=== PATIENT | female | born 1990 | race Two or more races ===

== ENCOUNTER 2016-09-23 20:37 | Emergency (ER) | payer SELFPAY ==
[~2016-09-23] VITALS: Ht 160 cm; Wt 90.7 kg
[~2016-09-23 20:37] MED LIST: ANTIDEPRESSANT
[2016-09-23 20:39] VITALS: BP 120/71
== END 2016-09-23 21:00 | disposition home or self-care (01) ==
LOC: ER 20:48
DX: A08.4 Viral intestinal infection, unspecified (principal); F32.9 Major depressive disorder, single episode, unspecified
CPT/HCPCS: A4606; Z7610

== ENCOUNTER 2017-07-22 20:59 | Emergency (ER) | payer MEDICAID, OTHER ==
[~2017-07-22] VITALS: Ht 157.5 cm; Wt 77.1 kg
[2017-07-22 21:02] VITALS: BP 126/70
[2017-07-22 22:15] LABS: APPEARANCE,URINE CLEAR (CLEAR); BILIRUBIN,URINE NEGATIVE (NEGATIVE); BLOOD, URINE NEGATIVE Ery/uL (NEGATIVE); COLOR,URINE YELLOW (YELLOW); KETONES,URINE NEGATIVE (NEGATIVE); LEUKOCYTE ESTERASE ,URINE NEGATIVE (NEGATIVE); NITRITE, URINE NEGATIVE (NEGATIVE); PROTEIN,URINE NEGATIVE (NEGATIVE); UGLUCOSE NEGATIVE (NEGATIVE); UROBILINOGEN,URINE 0.2 EU/dL (0.2)
--- NOTE | 2017-07-22 22:19 | NUR ---
pt medicated as ordered.
[2017-07-22 22:22] LABS: BASOPHILS % (AUTO) 0.3 % (0.0-2.0); EOSINOPHILS # (AUTO) 0.2 /CMM (0.0-0.7); EOSINOPHILS % (AUTO) 1.8 % (0.0-6.0); HEMATOCRIT 30 % (33-45); HEMOGLOBIN 10.1 g/dL (11.5-14.8); LYMPHOCYTES # (AUTO) 2.3 /CMM (0.8-4.8); LYMPHOCYTES % (AUTO) 20.8 % (20.0-44.0); MEAN CORPUSCULAR HEMOGLOBIN 27 PG (26.0-33.0); MEAN CORPUSCULAR HGB CONC 34 g/dl (31.0-36.0); MEAN CORPUSCULAR VOLUME 82 fL (82-100); MONOCYTES # (AUTO) 0.6 /CMM (0.1-1.30); MONOCYTES % (AUTO) 5.4 % (2.0-12.0); NEUTROPHILS % (AUTO) 71.7 % (43.0-81.0); PLATELET COUNT (AUTO) 273 /CMM (150-450); RDW COEFFICIENT OF VARIATION 15.4 (11.5-15.0); RED BLOOD CELL COUNT(AUTO) 3.69 MIL/uL (4.0-5.2); WHITE BLOOD COUNT (AUTO) 11.2 K/uL (4.3-11.0)
[2017-07-22] MEDS ORDERED: IV NS 0.9% 1,000 ML BAG IV ONE (22:30)
[2017-07-22 22:33] LABS: CALCIUM, SERUM 8.7 mg/dL (8.5-10.1); CREATININE 0.7 mg/dL (0.6-1.3); POTASSIUM 3.3 mmol/L (3.5-5.1)
[2017-07-22 22:40] LABS: ALBUMIN 2.9 g/dL (3.4-5.0); BILIRUBIN,TOTAL 0.2 mg/dL (0.2-1.0); TOTAL PROTEIN, SERUM 6.6 g/dL (6.4-8.2)
--- NOTE | 2017-07-22 23:36 | NUR ---
IV removed. Catheter intact and site benign. Pressure and 4x4 applied to site. No bleeding noted. Patient discharged to home in stable condition. Written and verbal after care instructions given. Patient verbalizes understanding of instruction. ambulatory with a steady gait
== END 2017-07-22 23:37 | disposition home or self-care (01) ==
LOC: ER 21:00
DX: R19.7 Diarrhea, unspecified (principal)
CPT/HCPCS: 36415; 80053; 81001; 84703; 85025; 96360; 99284; A4606; J7030; Z7610; 81000-TC

== ENCOUNTER 2017-12-06 20:45 | Emergency (ER) | payer OTHER ==
[~2017-12-06] VITALS: Ht 157.5 cm; Wt 63.5 kg
--- NOTE | 2017-12-06 20:59 | NUR ---
BB SELF; FEVER, CHILLS, COUGH, CONGESTION X 2 DAYS. NO SOB OR PAIN. VSS NAD. A/OX4 ABLE TO MAKE NEEDS KNOWN. WILL CONTINUE TO MONITOR FOR ANY CHANGES DURING THE SHFT.
[2017-12-06 21:06] VITALS: BP 151/97
== END 2017-12-06 21:06 | disposition home or self-care (01) ==
LOC: ER 20:45
DX: J20.9 Acute bronchitis, unspecified (principal); H92.02 Otalgia, left ear; Z98.890 Other specified postprocedural states
CPT/HCPCS: A4606; Z7610

== ENCOUNTER 2018-05-27 15:54 | Emergency (ER) | payer OTHER ==
[~2018-05-27] VITALS: Ht 157.5 cm; Wt 72.6 kg
[2018-05-27 16:08] VITALS: BP 138/77
== END 2018-05-27 16:48 | disposition home or self-care (01) ==
LOC: ER 16:05
DX: J06.9 Acute upper respiratory infection, unspecified (principal); J00 Acute nasopharyngitis [common cold]; H69.93 Unspecified Eustachian tube disorder, bilateral; Z98.890 Other specified postprocedural states
CPT/HCPCS: 99283; A4606; Z7610

== ENCOUNTER 2018-05-29 19:07 | Emergency (ER) | payer OTHER ==
[~2018-05-29] VITALS: Ht 160 cm; Wt 88.5 kg
[2018-05-29 19:22] VITALS: BP 129/64
== END 2018-05-29 19:43 | disposition home or self-care (01) ==
LOC: ER 19:08
DX: H72.92 Unspecified perforation of tympanic membrane, left ear (principal); Z98.890 Other specified postprocedural states
CPT/HCPCS: 99283; A4606; Z7610

== ENCOUNTER 2018-09-07 15:11 | Emergency (ER) | payer OTHER ==
[~2018-09-07] VITALS: Ht 157.5 cm; Wt 99.8 kg
[2018-09-07 15:26] VITALS: BP 121/84
[2018-09-07] MEDS ORDERED: FLUORESCEIN SODIUM OPHTH 1 EA STRIP ONE (15:39)
[2018-09-07] MEDS ORDERED: TETRACAINE HCL/PF 0.5% UD 2 ML BOTTLE ONE (15:39)
[2018-09-07] MEDS ORDERED: FLUORESCEIN SODIUM OPHTH 1 EA STRIP OP ONE (16:00)
[2018-09-07] MEDS ORDERED: TETRACAINE HCL/PF 0.5% UD 2 ML BOTTLE LEFTEYE ONE (16:00)
== END 2018-09-07 15:54 | disposition home or self-care (01) ==
LOC: ER 15:14
DX: B30.9 Viral conjunctivitis, unspecified (principal); Z98.890 Other specified postprocedural states
CPT/HCPCS: 99283; A4606; Z7610

== ENCOUNTER 2019-01-30 14:22 | Emergency (ER) | payer OTHER ==
[~2019-01-30] VITALS: Ht 167.6 cm; Wt 95.3 kg
[2019-01-30] MEDS ORDERED: ACETAMINOPHEN 325 MG TABLET ONE (15:13)
[2019-01-30] MEDS ORDERED: IBUPROFEN 600 MG TABLET PO ONE ×2 (15:13→15:30)
[2019-01-30] MEDS ORDERED: PSEUDOEPHEDRINE HCL 30 MG TABLET ONE (15:14)
--- NOTE | 2019-01-30 15:20 | NUR ---
Patient discharged to home in stable condition. Written and verbal after care instructions given. Patient verbalizes understanding of instruction. PT AMBULATED OUT WITH A STEADY GAIT. VSS. NAD NOTED.
[2019-01-30 15:22] VITALS: BP 117/76
[2019-01-30] MEDS ORDERED: PSEUDOEPHEDRINE HCL 30 MG TABLET PO ONE (15:30)
[2019-01-30] MEDS ORDERED: ACETAMINOPHEN 325 MG TABLET PO ONE (15:30)
== END 2019-01-30 15:23 | disposition home or self-care (01) ==
LOC: ER 14:22
DX: J06.9 Acute upper respiratory infection, unspecified (principal); Z98.890 Other specified postprocedural states

== ENCOUNTER 2019-09-19 16:25 | Emergency (ER) | payer OTHER ==
[~2019-09-19] VITALS: Ht 160 cm; Wt 98.4 kg
--- NOTE | 2019-09-19 17:08 | NUR ---
PT AAOX4. AMBULATORY C/O cough, congestion, chills for the past two days. upon assessment RR even and unlabored. vss. PA at bedside for eval.
[2019-09-19] MEDS ORDERED: ACETAMINOPHEN ES 500 MG TABLET ONE (17:18)
[2019-09-19] MEDS ORDERED: ACETAMINOPHEN 325 MG TABLET PO ONE (17:30)
--- NOTE | 2019-09-19 18:36 | NUR ---
Katherine ventura in [facility] - 09/19/19 at 1837 by JOAQUIN PT REFUSED FOR US TO WOUND CARE.
[2019-09-19 18:57] VITALS: BP 127/84
== END 2019-09-19 18:50 | disposition home or self-care (01) ==
LOC: ER 16:30
DX: J06.9 Acute upper respiratory infection, unspecified (principal); E11.9 Type 2 diabetes mellitus without complications; Z98.890 Other specified postprocedural states
CPT/HCPCS: 71045-TC

== ENCOUNTER 2019-09-27 11:50 | Emergency (ER) | payer OTHER ==
[~2019-09-27] VITALS: Ht 160 cm; Wt 99.4 kg
[2019-09-27 12:34] VITALS: BP 128/78
== END 2019-09-27 12:57 | disposition home or self-care (01) ==
LOC: ER 11:55
DX: J40 Bronchitis, not specified as acute or chronic (principal); E11.9 Type 2 diabetes mellitus without complications; Z98.890 Other specified postprocedural states

== ENCOUNTER 2020-09-26 15:47 | Emergency (ER) | payer OTHER ==
[~2020-09-26] VITALS: Ht 160 cm; Wt 95.3 kg
--- NOTE | 2020-09-26 16:22 | NUR ---
BIBS FROM HOME TO ER CH1. AAOX4, NOT IN RESP DISTRESS. AMBULATORY. CAME IN FOR GENERALIZED HEADACHE WHICH IS EXTENDING ALL THE WAY TO HER NECK. PAIN IS 8/10 THROBBING SQUEEZING IN SENSATION. NECK ROM IS INTACK W/O ANY LIMITATION. PT REPORTS THAT SHE HAD MENINGITIS IN THE PAST.
[2020-09-26 17:14] LABS: BILIRUBIN,URINE MODERATE (NEGATIVE); COLOR,URINE RED (YELLOW); LEUKOCYTE ESTERASE ,URINE Trace (NEGATIVE); NITRITE, URINE Negative (NEGATIVE); PH,URINE 5.5 (5.0-8.0); PROTEIN,URINE >=300 mg/dl (NEGATIVE); UGLUCOSE Negative (NEGATIVE); UROBILINOGEN,URINE 0.2 EU/dL (0.2)
[2020-09-26 17:18] LABS: BASOPHILS % (AUTO) 0.4 % (0.0-2.0); EOSINOPHILS % (AUTO) 2.1 % (0.0-6.0); HEMATOCRIT 38 % (33-45); HEMOGLOBIN 12.9 g/dL (11.5-14.8); LYMPHOCYTES # (AUTO) 3.3 /CMM (0.8-4.8); LYMPHOCYTES % (AUTO) 36.3 % (20.0-44.0); MEAN CORPUSCULAR HGB CONC 34 g/dl (31.0-36.0); MEAN CORPUSCULAR VOLUME 90 fL (82-100); MONOCYTES # (AUTO) 0.5 /CMM (0.1-1.30); MONOCYTES % (AUTO) 5.9 % (2.0-12.0); NEUTROPHILS # (AUTO) 5.1 /CMM (1.8-8.9); NEUTROPHILS % (AUTO) 55.3 % (43.0-81.0); PLATELET COUNT (AUTO) 258 /CMM (150-450); RED BLOOD CELL COUNT(AUTO) 4.18 MIL/uL (4.0-5.2); WHITE BLOOD COUNT (AUTO) 9.2 K/uL (4.3-11.0)
[2020-09-26 17:26] LABS: CREATININE 0.7 mg/dL (0.6-1.3)
[2020-09-26 17:32] LABS: BACTERIA,URINE Few /HPF (None Seen); RBC,URINE TOO NUMEROUS TO COUN /HPF (0-2); SQUAMOUS EPITHELIAL CELL,UR Few /HPF (None Seen)
[2020-09-26] MEDS ORDERED: KETOROLAC TROMETHAMINE INJ 30 MG/ML VIAL ONE (18:07)
[2020-09-26] MEDS: KETOROLAC TROMETHAMINE INJ 60 MG/2 ML VIAL IM ONE (18:12)
[2020-09-26 18:14] VITALS: BP 156/88
== END 2020-09-26 18:15 | disposition home or self-care (01) ==
LOC: ER 15:52
DX: G44.209 Tension-type headache, unspecified, not intractable (principal); E11.9 Type 2 diabetes mellitus without complications; Z98.890 Other specified postprocedural states
CPT/HCPCS: 36415; 70450; 80048; 81001; 84702; 84703; 85025; 96372; 99284; J1885

== ENCOUNTER 2020-10-04 16:51 | Emergency (ER) | payer OTHER ==
[~2020-10-04] VITALS: Ht 160 cm; Wt 95.3 kg
--- NOTE | 2020-10-04 17:30 | NUR ---
JAYANT MULTIGRAPHER AT BS FOR EVAL.
--- NOTE | 2020-10-04 17:42 | NUR ---
ABDOMINAL PAIN X 2 DAYS. PT AAOX4, VSS. RR EVEN & UNLABORED. DENIES CP, SOB, DIZZINESS, N/V/D AT THIS TIME. WILL CONT TO MONITOR.
[2020-10-04 17:56] LABS: BASOPHILS % (AUTO) 0.4 % (0.0-2.0); HEMATOCRIT 37 % (33-45); HEMOGLOBIN 12.9 g/dL (11.5-14.8); LYMPHOCYTES # (AUTO) 2.9 /CMM (0.8-4.8); LYMPHOCYTES % (AUTO) 29.4 % (20.0-44.0); MEAN CORPUSCULAR HGB CONC 34 g/dl (31.0-36.0); MEAN CORPUSCULAR VOLUME 90 fL (82-100); MONOCYTES # (AUTO) 0.7 /CMM (0.1-1.30); MONOCYTES % (AUTO) 6.8 % (2.0-12.0); NEUTROPHILS % (AUTO) 61.4 % (43.0-81.0); PLATELET COUNT (AUTO) 241 /CMM (150-450); RED BLOOD CELL COUNT(AUTO) 4.17 MIL/uL (4.0-5.2); WHITE BLOOD COUNT (AUTO) 9.8 K/uL (4.3-11.0)
[2020-10-04] MEDS ORDERED: IV NS 0.9% 1,000 ML BAG IV ONE (18:00)
[2020-10-04 18:07] LABS: ALBUMIN 3.6 g/dL (3.4-5.0); BILIRUBIN,DIRECT 0.1 mg/dL (0.0-0.2); BILIRUBIN,TOTAL 0.3 mg/dL (0.2-1.0); CALCIUM, SERUM 8.6 mg/dL (8.5-10.1); CREATININE 0.6 mg/dL (0.6-1.3); POTASSIUM 3.5 mmol/L (3.5-5.1); TOTAL PROTEIN, SERUM 7.8 g/dL (6.4-8.2)
[2020-10-04] MEDS ORDERED: LIDOCAINE VISCOUS 2% UD 15 ML UDC MM ONE (18:30)
[2020-10-04] MEDS ORDERED: MAG HYDROX/AL HYDROX/SIMETH 30 ML UDC PO ONE (18:30)
[2020-10-04] MEDS ORDERED: FAMOTIDINE (20 MG) 20 MG TABLET PO ONE (18:30)
[2020-10-04] MEDS ORDERED: FAMOTIDINE (20 MG) 20 MG TABLET ONE (18:34)
[2020-10-04] MEDS ORDERED: LIDOCAINE VISCOUS 2% UD 15 ML UDC ONE (18:34)
[2020-10-04] MEDS ORDERED: MAG HYDROX/AL HYDROX/SIMETH 30 ML UDC ONE (18:34)
--- NOTE | 2020-10-04 18:40 | NUR ---
MEDICATED PER ASSISTANT UNIT FORESTER'S ORDER, PT NURY WELL.
[2020-10-04 19:22] VITALS: BP 124/78
--- NOTE | 2020-10-04 19:22 | NUR ---
Patient discharged to home in stable condition. Written and verbal after care instructions given. Patient verbalizes understanding of instruction. IV removed. Catheter intact and site benign. Pressure and 4x4 applied to site. No bleeding noted.
== END 2020-10-04 19:23 | disposition home or self-care (01) ==
LOC: ER 16:57
DX: R10.13 Epigastric pain (principal); E11.9 Type 2 diabetes mellitus without complications; Z98.890 Other specified postprocedural states
CPT/HCPCS: 36415; 76705; 80048; 80076; 83690; 85025; 96360; 99284; J7030

== ENCOUNTER 2020-10-29 18:32 | Emergency (ER) | payer OTHER ==
[~2020-10-29] VITALS: Ht 160 cm; Wt 95.3 kg
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
[2020-10-29] MEDS ORDERED: MORPHINE SULFATE INJ 4 MG/ML DISP.SYRIN ONE (19:18)
[2020-10-29] MEDS ORDERED: ONDANSETRON HCL/PF 4 MG/2 ML VIAL ONE (19:18)
[2020-10-29 19:29] LABS: BASOPHILS # (AUTO) 0.1 /CMM (0.0-0.2); BASOPHILS % (AUTO) 0.6 % (0.0-2.0); EOSINOPHILS % (AUTO) 1.5 % (0.0-6.0); HEMATOCRIT 36 % (33-45); HEMOGLOBIN 12.2 g/dL (11.5-14.8); LYMPHOCYTES # (AUTO) 2.7 /CMM (0.8-4.8); LYMPHOCYTES % (AUTO) 22.5 % (20.0-44.0); MEAN CORPUSCULAR HGB CONC 34 g/dl (31.0-36.0); MEAN CORPUSCULAR VOLUME 89 fL (82-100); MONOCYTES # (AUTO) 0.7 /CMM (0.1-1.30); MONOCYTES % (AUTO) 5.8 % (2.0-12.0); NEUTROPHILS # (AUTO) 8.5 /CMM (1.8-8.9); NEUTROPHILS % (AUTO) 69.6 % (43.0-81.0); PLATELET COUNT (AUTO) 247 /CMM (150-450); WHITE BLOOD COUNT (AUTO) 12.2 K/uL (4.3-11.0)
[2020-10-29] MEDS ORDERED: IV NS 0.9% 1,000 ML BAG IV ONE (19:30)
[2020-10-29] MEDS ORDERED: ONDANSETRON HCL/PF 4 MG/2 ML VIAL IVP ONE (19:30)
[2020-10-29] MEDS ORDERED: MORPHINE SULFATE INJ 2 MG/ML DISP.SYRIN IV ONE (19:30)
[2020-10-29] MEDS ORDERED: IV NS 0.9% 250 ML IV ONE (19:44)
[2020-10-29] MEDS ORDERED: IOHEXOL-300 100 ML VIAL IV ONE (19:44)
[2020-10-29 19:45] LABS: ALBUMIN 3.7 g/dL (3.4-5.0); BILIRUBIN,DIRECT 0.1 mg/dL (0.0-0.2); BILIRUBIN,TOTAL 0.3 mg/dL (0.2-1.0); CALCIUM, SERUM 8.8 mg/dL (8.5-10.1); CREATININE 0.7 mg/dL (0.6-1.3); POTASSIUM 3.5 mmol/L (3.5-5.1); TOTAL PROTEIN, SERUM 7.7 g/dL (6.4-8.2)
[2020-10-29 19:45] LABS: BILIRUBIN,URINE Negative (NEGATIVE); COLOR,URINE YELLOW (YELLOW); LEUKOCYTE ESTERASE ,URINE Negative (NEGATIVE); NITRITE, URINE Negative (NEGATIVE); PROTEIN,URINE Negative (NEGATIVE); UGLUCOSE Negative (NEGATIVE); UROBILINOGEN,URINE 0.2 EU/dL (0.2)
[2020-10-29 19:48] LABS: BACTERIA,URINE Rare /HPF (None Seen); SQUAMOUS EPITHELIAL CELL,UR Few /HPF (None Seen); WBC,URINE NONE SEEN /HPF (0-3)
--- NOTE | 2020-10-29 20:05 | NUR ---
BROUGHT TO CT
[2020-10-29] MEDS ORDERED: IBUP-1953 PO (20:43)
--- NOTE | 2020-10-29 22:00 | NUR ---
Patient discharged to home in stable condition. Written and verbal after care instructions given. Patient verbalizes understanding of instruction.
[2020-10-29 22:32] VITALS: BP 119/72
== END 2020-10-29 22:33 | disposition home or self-care (01) ==
LOC: ER 18:32
DX: S60.221A Contusion of right hand, initial encounter (principal); S60.222A Contusion of left hand, initial encounter; S30.1XXA Contusion of abdominal wall, initial encounter; S20.219A Contusion of unspecified front wall of thorax, initial encounter; E11.9 Type 2 diabetes mellitus without complications; Z98.890 Other specified postprocedural states; V49.49XA Driver injured in collision with other motor vehicles in traffic accident, initial encounter; Y93.89 Activity, other specified; Y92.413 State road as the place of occurrence of the external cause; Y99.8 Other external cause status
CPT/HCPCS: 36415; 71260; 73130 ×2; 74177; 80048; 80076; 81001; 84703; 85025; 85730; 93005; 96361; 96374; 96375; 99285; J2270; J2405; J7030; J7050; Q9967

== ENCOUNTER 2021-03-14 22:02 | Emergency (ER) | payer OTHER ==
[~2021-03-14] VITALS: Ht 160 cm; Wt 99.8 kg
[~2021-03-14 22:02] MED LIST changes: +IBUP-1953 PO
--- NOTE | 2021-03-14 22:14 | NUR ---
PATIENT CAME TO ER BED 11 C/O EPIGASTRIC PAIN. PATIENT STATES THAT THE PAIN OCCURS AFTER EATING. PATIENT STATES THAT SHE HAS HAD THIS SAME PAIN 3x WITHIN THIS YEAR. PATIENT IS ALERT AND ORIENTED x4. PATIENT BREATHING EVENLY AND UNLABORED ON ROOM AIR. CONNECTED TO THE MONITOR.
--- NOTE | 2021-03-14 22:38 | NUR ---
braze operator at bedside for blood draw
[2021-03-14 22:47] LABS: HEMOGLOBIN 12.1 g/dL (11.5-14.8); RED BLOOD CELL COUNT(AUTO) 3.97 MIL/uL (4.0-5.2)
[2021-03-14] MEDS ORDERED: ONDANSETRON HCL/PF 4 MG/2 ML VIAL ONE (22:49)
[2021-03-14 22:56] LABS: BILIRUBIN,URINE NEGATIVE (NEGATIVE); COLOR,URINE YELLOW (YELLOW); LEUKOCYTE ESTERASE ,URINE NEGATIVE (NEGATIVE); NITRITE, URINE NEGATIVE (NEGATIVE); PROTEIN,URINE NEGATIVE (NEGATIVE); UGLUCOSE NEGATIVE (NEGATIVE); UROBILINOGEN,URINE 0.2 EU/dL (0.2)
[2021-03-14 22:57] LABS: BASOPHILS # (AUTO) 0.1 K/uL (0.0-0.2); BASOPHILS % (AUTO) 0.5 % (0.0-2.0); EOSINOPHILS % (AUTO) 1.6 % (0.0-6.0); HEMATOCRIT 35 % (33-45); LYMPHOCYTES # (AUTO) 2.7 K/uL (0.8-4.8); LYMPHOCYTES % (AUTO) 26.5 % (20.0-44.0); MEAN CORPUSCULAR HGB CONC 34 g/dl (31.0-36.0); MEAN CORPUSCULAR VOLUME 89 fL (82-100); MONOCYTES # (AUTO) 0.4 K/uL (0.1-1.30); MONOCYTES % (AUTO) 4.4 % (2.0-12.0); NEUTROPHILS # (AUTO) 6.9 K/uL (1.8-8.9); PLATELET COUNT (AUTO) 265 K/uL (150-450); WHITE BLOOD COUNT (AUTO) 10.3 K/uL (4.3-11.0)
[2021-03-14] MEDS ORDERED: IV NS 0.9% 1,000 ML BAG IV ONE (23:00)
[2021-03-14] MEDS ORDERED: MORPHINE SULFATE INJ 2 MG/ML DISP.SYRIN IV ONE (23:00)
[2021-03-14] MEDS ORDERED: ONDANSETRON HCL/PF 4 MG/2 ML VIAL IVP ONE (23:00)
[2021-03-14 23:10] LABS: BACTERIA,URINE Moderate /HPF (None Seen); MUCUS,URINE Few /LPF (None Seen); SQUAMOUS EPITHELIAL CELL,UR Moderate /HPF (None Seen); WBC,URINE 0-2 /HPF (0-3)
[2021-03-14 23:23] LABS: CALCIUM, SERUM 8.4 mg/dL (8.5-10.1); CREATININE 0.8 mg/dL (0.6-1.3); POTASSIUM 3.4 mmol/L (3.5-5.1)
[2021-03-14 23:29] LABS: ALBUMIN 3.3 g/dL (3.4-5.0); BILIRUBIN,DIRECT 0.1 mg/dL (0.0-0.2); BILIRUBIN,TOTAL 0.4 mg/dL (0.2-1.0); TOTAL PROTEIN, SERUM 7.2 g/dL (6.4-8.2)
[2021-03-14] MEDS ORDERED: IV NS 0.9% 1,000 ML IV ONE (23:30)
[2021-03-14] MEDS ORDERED: MORPHINE SULFATE INJ 4 MG/ML DISP.SYRIN ONE (23:50)
[2021-03-15] MEDS ORDERED: ONDA4TAB11 PO (00:13)
[2021-03-15] MEDS ORDERED: OXYC-128 PO (00:13)
--- NOTE | 2021-03-15 04:02 | NUR ---
Patient discharged to home in stable condition. Written and verbal after care instructions given. Patient verbalizes understanding of instruction.
--- NOTE | 2021-03-15 04:02 | NUR ---
PATIENT IS AMBULATORY WITH A STEADY GAIT.
--- NOTE | 2021-03-15 04:02 | NUR ---
IV removed. Catheter intact and site benign. Pressure and 4x4 applied to site. No bleeding noted.
[2021-03-15 04:06] VITALS: BP 138/76
[2021-03-15] MEDS ORDERED: NORE1TAB93 PO (17:37)
[2021-03-15] MEDS ORDERED: METF-440 PO (17:37)
[2021-03-15] MEDS ORDERED: SIMV10TA98 PO (17:37)
== END 2021-03-15 04:21 | disposition home or self-care (01) ==
LOC: ER 22:02
DX: K85.90 Acute pancreatitis without necrosis or infection, unspecified (principal); R10.13 Epigastric pain; E78.5 Hyperlipidemia, unspecified; E11.9 Type 2 diabetes mellitus without complications; Z98.890 Other specified postprocedural states; Z79.899 Other long term (current) drug therapy
CPT/HCPCS: 36415; 76705; 80048; 80076; 81001; 83690; 84703; 85025; 87086; 96361; 96374; 96375; 99284; J2270; J2405; J7030 ×2

== ENCOUNTER 2021-03-15 13:52 | Inpatient (IN) | payer OTHER ==
[~2021-03-15] VITALS: Ht 160 cm; Wt 93.4 kg
[~2021-03-15 13:52] MED LIST changes: +ONDA4TAB11 PO; +OXYC-128 PO
--- NOTE | 2021-03-15 14:28 | NUR ---
BIBS FROM HOME TO ER BED 7. AAOX4. NOT IN RESP DISTRESS. AMBULATORY. CAME IN FOR EPIGASTRIC PAIN STARTED YESTERDAY. PER PT, SHE WAS HERE YESTERDAY AND ABOUT TO BE ADMITTED BECAUSE OF HER PANCREASE BUT LEFT. SHE IS BACK BECAUSE THE PAIN IS BACK. URINE COLLECETED. AWAITING MD FOR EVAL.
[2021-03-15 14:46] LABS: BASOPHILS % (AUTO) 0.5 % (0.0-2.0); EOSINOPHILS % (AUTO) 2.4 % (0.0-6.0); HEMATOCRIT 35 % (33-45); HEMOGLOBIN 11.8 g/dL (11.5-14.8); LYMPHOCYTES # (AUTO) 2.5 K/uL (0.8-4.8); LYMPHOCYTES % (AUTO) 27.8 % (20.0-44.0); MEAN CORPUSCULAR HGB CONC 34 g/dl (31.0-36.0); MEAN CORPUSCULAR VOLUME 89 fL (82-100); MONOCYTES # (AUTO) 0.6 K/uL (0.1-1.30); MONOCYTES % (AUTO) 7.1 % (2.0-12.0); NEUTROPHILS # (AUTO) 5.5 K/uL (1.8-8.9); NEUTROPHILS % (AUTO) 62.2 % (43.0-81.0); PLATELET COUNT (AUTO) 237 K/uL (150-450); RED BLOOD CELL COUNT(AUTO) 3.91 MIL/uL (4.0-5.2); WHITE BLOOD COUNT (AUTO) 8.9 K/uL (4.3-11.0)
[2021-03-15 14:52] LABS: CALCIUM, SERUM 8.1 mg/dL (8.5-10.1); CREATININE 0.5 mg/dL (0.6-1.3); POTASSIUM 3.3 mmol/L (3.5-5.1)
[2021-03-15 14:58] LABS: ALBUMIN 3.2 g/dL (3.4-5.0); BILIRUBIN,DIRECT 0.1 mg/dL (0.0-0.2); BILIRUBIN,TOTAL 0.6 mg/dL (0.2-1.0); TOTAL PROTEIN, SERUM 7.1 g/dL (6.4-8.2)
[2021-03-15] MEDS ORDERED: IV NS 0.9% 1,000 ML BAG IV ONE (15:00)
--- NOTE | 2021-03-15 15:43 | NUR ---
TO CT ON [facility]. NO NEED FOR . DONE YESTERDAY WITH NEGATIVE HCG
[2021-03-15] MEDS ORDERED: METF-440 PO (17:37)
[2021-03-15] MEDS ORDERED: NORE1TAB93 PO (17:37)
[2021-03-15] MEDS ORDERED: SIMV10TA98 PO (17:37)
--- NOTE | 2021-03-15 18:31 | NUR ---
URINE SPECIMEN SENT TO LAB
--- NOTE | 2021-03-15 18:49 | NUR ---
COVID SWAB DONE AND SENT TO LAB
--- NOTE | 2021-03-15 21:05 | NUR ---
MS [id number]
--- NOTE | 2021-03-15 21:26 | NUR ---
REPORT GIVEN TO MELONY VAUGHN FOR ELIAN
[2021-03-15 21:31] VITALS: BP 121/74
--- NOTE | 2021-03-15 21:31 | NUR ---
PT TRANSPORTED TO UNIT ON WHEELCHAIR WITH EMT AT BEDSIDE ON STABLE CONDITION. NAD NOTED.
[2021-03-15 21:45] VITALS: BP 121/74
--- NOTE | 2021-03-15 21:45 | NUR ---
MS FORK LIFT TRUCK OPERATOR NOTES RECEIVED FORM ER PER WHEELCHAIR,ALERT,ORIENTED X4,WITH DIAGNOSIS OF PANCREATITIS,C/O ABDOMINAL PAIN WITH NAUSEA AND VOMITING.NO SKIN ISSUES,AMBULATE WITH STEADY GAIT,SALINE LOCK RIGHT AC INTACT AND PATENT.CALL LIGHT IN REACH,NEEDS ANTICIPATED.
[2021-03-15] MEDS ORDERED: ONDANSETRON HCL/PF 4 MG/2 ML VIAL IVP PRN (22:30)
[2021-03-15] MEDS ORDERED: ACETAMINOPHEN 650 MG/SUPP.RECT RC PRN (22:30)
[2021-03-15] MEDS ORDERED: MORPHINE SULFATE INJ 2 MG/ML DISP.SYRIN IV PRN (22:30)
[2021-03-15] MEDS ORDERED: Potassium Chloride 20 MEQ in IV D5/ 0.9% NACL 1,000 ML IV PRN (22:30)
[2021-03-16] MEDS ORDERED: Potassium Chloride 20 MEQ in IV D5/0.45 NACL 1,000 ML IV PRN
[2021-03-16] MEDS ORDERED: IV PREMIX D5 1/2NS + KCL 1,000 ML IV ONE (00:03)
[2021-03-16] MEDS: IV PREMIX D5 1/2NS + KCL 1,000 ML IV PRN ×2 (00:38→11:58)
--- NOTE | 2021-03-16 00:38 | NUR ---
MS RN NOTES STARTED ON IVF D5 1/2 NS AT 90ML/HR RATE,INFUSING WELL VIA IV PUMP.
[2021-03-16 06:26] LABS: BASOPHILS % (AUTO) 0.4 % (0.0-2.0); EOSINOPHILS % (AUTO) 2.6 % (0.0-6.0); HEMATOCRIT 33 % (33-45); HEMOGLOBIN 11.4 g/dL (11.5-14.8); LYMPHOCYTES # (AUTO) 2.5 K/uL (0.8-4.8); LYMPHOCYTES % (AUTO) 27.8 % (20.0-44.0); MEAN CORPUSCULAR HGB CONC 35 g/dl (31.0-36.0); MEAN CORPUSCULAR VOLUME 90 fL (82-100); MONOCYTES # (AUTO) 0.7 K/uL (0.1-1.30); MONOCYTES % (AUTO) 7.4 % (2.0-12.0); NEUTROPHILS # (AUTO) 5.5 K/uL (1.8-8.9); NEUTROPHILS % (AUTO) 61.8 % (43.0-81.0); PLATELET COUNT (AUTO) 231 K/uL (150-450); RED BLOOD CELL COUNT(AUTO) 3.67 MIL/uL (4.0-5.2); WHITE BLOOD COUNT (AUTO) 8.9 K/uL (4.3-11.0)
[2021-03-16 06:43] LABS: BILIRUBIN,TOTAL 0.6 mg/dL (0.2-1.0); CREATININE 0.6 mg/dL (0.6-1.3); POTASSIUM 3.2 mmol/L (3.5-5.1); TOTAL PROTEIN, SERUM 6.9 g/dL (6.4-8.2)
[2021-03-16 06:48] LABS: THYROID STIMULATING HORMONE 0.449 uIU/mL (0.358-3.74)
--- NOTE | 2021-03-16 06:51 | NUR ---
MS RN NOTES FAIRLY RESTED,TOLERABLE ABDOMINAL PAIN,IVF IN PROGRESS,SITE REMAINS PATENT.KEPT NPO ORDERED.IN NO ACUTE DISTRESS.ENDORSED TO DAY NURSE FOR ELIAN.
--- NOTE | 2021-03-16 07:30 | NUR ---
MS RN OPENING NOTE RECEIVED PATIENT ASLEEP IN BED, EASY TO AROUSE. ALERT AND ORIENTED X 4. NO SIGNS OR SYMPTOMS OF DISTRESS NOTED. BREATHING IS EVEN AND UNLABORED. TOLERATING WELL ON ROOM AIR. ABLE TO MAKE NEEDS KNOWN. IV ACCESS RAC#20 PATENT AND INTACT. SAFETY MEASURES IN PLACE WITH BED AT LOWEST POSITION AND SIDE RAILS UP X 2. CALL LIGHT IS WITHIN REACH. WILL CONTINUE TO MONITOR THROUGHOUT SHIFT.
[2021-03-16 08:00] VITALS: BP 110/69
[2021-03-16] MEDS: PANTOPRAZOLE 40 MG VIAL IV SCH (08:25)
[2021-03-16] MEDS: POTASSIUM CL. PREMIX PERIPHER. 50 ML IV SCH ×2 (11:55→12:35)
[2021-03-16 16:00] VITALS: BP 121/70
--- NOTE | 2021-03-16 18:53 | NUR ---
MS RN CLOSING NOTE PATIENT RESTING COMFORTABLY IN BED, EASY TO AROUSE. ALERT AND ORIENTED X 4. NO SIGNS OR SYMPTOMS OF DISTRESS NOTED. BREATHING IS EVEN AND UNLABORED. TOLERATING WELL ON ROOM AIR. ABLE TO MAKE NEEDS KNOWN. IV ACCESS RAC#20 PATENT, INTACT AND FLUSHING WELL. SAFETY MEASURES IN PLACE WITH BED AT LOWEST POSITION AND SIDE RAILS UP X 2. CALL LIGHT IS WITHIN REACH. WILL ENDORSE CONTINUITY OF CARE TO NEXT NURSE.
--- NOTE | 2021-03-16 19:34 | NUR ---
MS RN Opening Notes Patient was seen awake in bed resting. Patient is alert and oriented x4. Patient's on room air with no respiratory distress noted. Patient has an IV access on her right AC gauge #20, which is intact, patent, and flushing well. Patient's in no acute distress at this time. Safety measures in place: Bed locked, bed alarm on, side rails up x2, and call light within reach of the patient. Will continue to monitor the patient.
[2021-03-16 20:00] VITALS: BP 104/60
[2021-03-17] MEDS: IV PREMIX D5 1/2NS + KCL 1,000 ML IV PRN (05:43)
[2021-03-17 06:24] LABS: BASOPHILS % (AUTO) 0.4 % (0.0-2.0); EOSINOPHILS % (AUTO) 4.2 % (0.0-6.0); HEMATOCRIT 34 % (33-45); HEMOGLOBIN 11.8 g/dL (11.5-14.8); LYMPHOCYTES # (AUTO) 2.8 K/uL (0.8-4.8); MEAN CORPUSCULAR HGB CONC 35 g/dl (31.0-36.0); MEAN CORPUSCULAR VOLUME 90 fL (82-100); MONOCYTES # (AUTO) 0.5 K/uL (0.1-1.30); MONOCYTES % (AUTO) 7.2 % (2.0-12.0); NEUTROPHILS # (AUTO) 3.5 K/uL (1.8-8.9); NEUTROPHILS % (AUTO) 49.2 % (43.0-81.0); PLATELET COUNT (AUTO) 258 K/uL (150-450); RED BLOOD CELL COUNT(AUTO) 3.81 MIL/uL (4.0-5.2); WHITE BLOOD COUNT (AUTO) 7.1 K/uL (4.3-11.0)
--- NOTE | 2021-03-17 06:46 | NUR ---
MS RN Closing Notes Patient was seen sleeping in bed. Patient is alert and oriented x4. Patient's on room air with no respiratory distress noted. Patient has an IV access on her right AC gauge #20, which is running D5 0.45% NS with 20Meq KCL at 90ml/hr. Patient's in no acute distress at this time. Safety measures in place: Bed locked, side rails up x2, and call light within reach of the patient. Will endorse care to the day shift nurse.
[2021-03-17 07:21] LABS: CALCIUM, SERUM 8.6 mg/dL (8.5-10.1); CREATININE 0.5 mg/dL (0.6-1.3); MAGNESIUM 2.3 mg/dL (1.8-2.4); PHOSPHORUS 3.6 mg/dL (2.5-4.9); POTASSIUM 3.6 mmol/L (3.5-5.1)
--- NOTE | 2021-03-17 07:21 | NUR ---
MS RN OPENING NOTES RECEIVED PATIENT ASLEEP IN BED, EASILY AWAKENS. A/O X 4. ABLE TO MAKE NEEDS KNOWN, DENIES PAIN OR ANY DISCOMFORTS AT THIS TIME. ON ROOM AIR, BREATHING IS EVEN AND UNLABORED. IV ACCESS ON RAC# INTACT AND PATENT, IVF OF D5 1/2 NS + KCL 20MEQ INFUSING WELL, NO S/S OF INFILTRATION AT SITE NOTED. SAFETY MEASURES IN PLACE: BED AT LOWEST LOCKED POSITION AND SIDE RAILS UP X 2. CALL LIGHT IS WITHIN REACH. WILL CONTINUE TO MONITOR PT THROUGHOUT SHIFT.
[2021-03-17] MEDS: PANTOPRAZOLE 40 MG VIAL IV SCH (08:16)
[2021-03-17 08:50] VITALS: BP 118/68
[2021-03-17] MEDS ORDERED: FENO48TA6 PO (12:04)
[2021-03-17 16:00] VITALS: BP 114/66
--- NOTE | 2021-03-17 18:47 | NUR ---
RN DISCHARGED NOTES PT DISCHARGE HOME IN STABLE CONDITION. A/O X4. ABLE TO MAKE NEEDS KNOWN. ON ROOM AIR, TOLERATING WELL WITH NO SOB NOTED DURING THE DAY. V/S TAKEN, STABLE AND RECORDED. PT HAS NO SKIN ISSUES. ALL BELONGINGS ACCOUNTED FOR. IV ACCESS ON RAC G#20 REMOVED WITH NO ACTIVE BLEEDING NOTED, PRESSURE DRESSING APPLIED AT SITE. NAME ARMBAND REMOVED. HEALTH TEACHINGS/DISCHARGE INSTRUCTIONS GIVEN TO PT AND VERBALIZED UNDERSTANDING. PRESCRIPTION AND EXIT FOLDER HANDED TO PT. PT LEFT UNIT AT 1805 VIA WHEELCHAIR ACCOMPANIED BY NURSE HERRING AND PT'S FAMILY. CHARGE NURSE AWARE OF DISCHARGE.
== END 2021-03-17 18:05 | disposition home health service (06) | DRG 282 ==
LOC: ER 13:53 → MED 21:12
PROVIDERS: ADMIT Internal Medicine; ATTEND Internal Medicine
DX: K85.90 Acute pancreatitis without necrosis or infection, unspecified (principal); E11.65 Type 2 diabetes mellitus with hyperglycemia; K76.0 Fatty (change of) liver, not elsewhere classified; E87.6 Hypokalemia; Z20.822 Contact with and (suspected) exposure to COVID-19; E78.1 Pure hyperglyceridemia; E78.5 Hyperlipidemia, unspecified; Z98.890 Other specified postprocedural states; Z79.84 Long term (current) use of oral hypoglycemic drugs; Z79.899 Other long term (current) drug therapy; K80.20 Calculus of gallbladder without cholecystitis without obstruction; Z83.3 Family history of diabetes mellitus; Z82.49 Family history of ischemic heart disease and other diseases of the circulatory system; E66.01 Morbid (severe) obesity due to excess calories; Z68.36 Body mass index [BMI] 36.0-36.9, adult
CPT/HCPCS: 36415; 80048-TC; 80053-TC; 80061-TC; 80076-TC; 83690-TC; 83735-TC; 84100-TC; 84443-TC; 84478-TC; 84703-TC; 85025-TC; 87081-TC; C9113; C9803; G0378; J2270; J3480; J3490; J7030; J7042

== ENCOUNTER → 2021-10-19 | Emergency (ER) | payer OTHER ==
[~2021-10-19] VITALS: Ht 160 cm; Wt 101.2 kg
[~2021-10-19] MED LIST changes: -ANTIDEPRESSANT; +FAMO-131 PO; +FENO48TA6 PO; -IBUP-1953 PO; +IV NS 0.9% 1,000 ML BAG IV ONE; +KETOROLAC TROMETHAMINE 15 MG/ML VIAL ONE; +KETOROLAC TROMETHAMINE INJ 30 MG/ML VIAL IV ONE; +METF-440 PO; +NORE1TAB93 PO; +ONDANSETRON HCL/PF 4 MG/2 ML VIAL IVP ONE; +ONDANSETRON HCL/PF 4 MG/2 ML VIAL ONE; -OXYC-128 PO; +SIMV10TA98 PO
--- NOTE | 2021-10-19 02:14 | NUR ---
BIBS C/O MID ABDOMINAL PAIN, "MORE PAINFUL AFTER EATING" STARTED AT 6PM +DIARRHEA +NAUSEA -VOMITTING. PATIENT ALERT AND ORIENTED X3. AMBULATORY WITH NON LABORED BRAETHING PLACED IN BED 04 ON MONITOR AND POX.
--- NOTE | 2021-10-19 02:40 | NUR ---
IV LINE ESTABLISHED AT R HAND 20G. BLOOD DRAWN, URINE COLLECTED, SENT TO LAB
[2021-10-19 02:45] LABS: BASOPHILS % (AUTO) 0.2 % (0.0-2.0); HEMATOCRIT 34 % (33-45); HEMOGLOBIN 11.2 g/dL (11.5-14.8); LYMPHOCYTES # (AUTO) 3.1 K/uL (0.8-4.8); LYMPHOCYTES % (AUTO) 36.1 % (20.0-44.0); MEAN CORPUSCULAR HGB CONC 33 g/dl (31.0-36.0); MEAN CORPUSCULAR VOLUME 81 fL (82-100); MONOCYTES # (AUTO) 0.6 K/uL (0.1-1.30); MONOCYTES % (AUTO) 6.7 % (2.0-12.0); NEUTROPHILS # (AUTO) 4.7 K/uL (1.8-8.9); PLATELET COUNT (AUTO) 288 K/uL (150-450); RED BLOOD CELL COUNT(AUTO) 4.14 MIL/uL (4.0-5.2); WHITE BLOOD COUNT (AUTO) 8.5 K/uL (4.3-11.0)
[2021-10-19 02:45] LABS: BILIRUBIN,URINE NEGATIVE (NEGATIVE); COLOR,URINE YELLOW (YELLOW); LEUKOCYTE ESTERASE ,URINE NEGATIVE (NEGATIVE); NITRITE, URINE NEGATIVE (NEGATIVE); PROTEIN,URINE NEGATIVE (NEGATIVE); UGLUCOSE >=1000 mg/dL (NEGATIVE); UROBILINOGEN,URINE 0.2 EU/dL (0.2)
[2021-10-19 03:38] LABS: CALCIUM, SERUM 8.6 mg/dL (8.5-10.1); CREATININE 0.7 mg/dL (0.6-1.3); POTASSIUM 3.9 mmol/L (3.5-5.1)
[2021-10-19 03:46] LABS: ALBUMIN 3.6 g/dL (3.4-5.0); BILIRUBIN,DIRECT 0.1 mg/dL (0.0-0.2); BILIRUBIN,TOTAL 0.4 mg/dL (0.2-1.0); TOTAL PROTEIN, SERUM 7.7 g/dL (6.4-8.2)
--- NOTE | 2021-10-19 04:11 | NUR ---
CALLED LAB TO ADD ORDERS T3 & T4
--- NOTE | 2021-10-19 04:30 | NUR ---
Patient discharged to home in stable condition. Written and verbal after care instructions given. Patient verbalizes understanding of instruction. Patient is ambulatory with a steady gait
[2021-10-19 04:32] VITALS: BP 126/63
== END | disposition home or self-care (01) ==
LOC: ER 01:33
DX: R10.13 Epigastric pain (principal); E78.5 Hyperlipidemia, unspecified; E11.9 Type 2 diabetes mellitus without complications; Z98.890 Other specified postprocedural states; Z79.84 Long term (current) use of oral hypoglycemic drugs; Z79.899 Other long term (current) drug therapy
CPT/HCPCS: 36415; 80048; 80076; 81003; 83690; 84703; 85025; 96361; 96374; 96375; 99284; J1885; J2405; J7030

== ENCOUNTER 2023-01-03 19:37 | Emergency (ER) | payer OTHER ==
[~2023-01-03] VITALS: Ht 160 cm; Wt 99.8 kg
[~2023-01-03 19:37] MED LIST changes: -IV NS 0.9% 1,000 ML BAG IV ONE; -KETOROLAC TROMETHAMINE 15 MG/ML VIAL ONE; -KETOROLAC TROMETHAMINE INJ 30 MG/ML VIAL IV ONE; -ONDANSETRON HCL/PF 4 MG/2 ML VIAL IVP ONE; -ONDANSETRON HCL/PF 4 MG/2 ML VIAL ONE
--- NOTE | 2023-01-03 19:49 | NUR ---
BIBSELF FROM HOME C/O MID UPPER ABD PAIN RADIATING TO BACK SINCE 2PM. HX PANCREATITIS. PT A/OX4. TOLERATING R/A WELL WITH NO RESP DISTRESS. CONNECTED PT TO POX AND MONITOR. SAFETY MEASURES IN PLACE.
--- NOTE | 2023-01-03 20:03 | NUR ---
RAC #18G S/L BLOOD COLLECTED AND SENT TO LAB
[2023-01-03 20:46] LABS: BASOPHILS # (AUTO) 0.1 K/uL (0.0-0.2); BASOPHILS % (AUTO) 0.5 % (0.0-2.0); EOSINOPHILS % (AUTO) 1.6 % (0.0-6.0); HEMATOCRIT 39 % (33-45); HEMOGLOBIN 13.2 g/dL (11.5-14.8); LYMPHOCYTES % (AUTO) 31.1 % (20.0-44.0); MEAN CORPUSCULAR HGB CONC 34 g/dl (31.0-36.0); MEAN CORPUSCULAR VOLUME 88 fL (82-100); MONOCYTES # (AUTO) 0.5 K/uL (0.1-1.30); MONOCYTES % (AUTO) 5.7 % (2.0-12.0); NEUTROPHILS # (AUTO) 5.9 K/uL (1.8-8.9); NEUTROPHILS % (AUTO) 61.1 % (43.0-81.0); PLATELET COUNT (AUTO) 233 K/uL (150-450); RED BLOOD CELL COUNT(AUTO) 4.45 MIL/uL (4.0-5.2); WHITE BLOOD COUNT (AUTO) 9.6 K/uL (4.3-11.0)
[2023-01-03 21:02] LABS: CALCIUM, SERUM 8.9 mg/dL (8.5-10.1); CREATININE 0.7 mg/dL (0.6-1.3); POTASSIUM 3.7 mmol/L (3.5-5.1)
[2023-01-03 21:08] LABS: ALBUMIN 3.6 g/dL (3.4-5.0); BILIRUBIN,DIRECT 0.1 mg/dL (0.0-0.2); BILIRUBIN,TOTAL 0.5 mg/dL (0.2-1.0); TOTAL PROTEIN, SERUM 7.6 g/dL (6.4-8.2)
--- NOTE | 2023-01-03 21:10 | NUR ---
URINE COLLECTED AND SENT TO LAB
[2023-01-03 21:25] LABS: BILIRUBIN,URINE 1+ (NEGATIVE); COLOR,URINE YELLOW (YELLOW); LEUKOCYTE ESTERASE ,URINE NEGATIVE (NEGATIVE); NITRITE, URINE NEGATIVE (NEGATIVE); PROTEIN,URINE NEGATIVE (NEGATIVE); UGLUCOSE NEGATIVE (NEGATIVE); UROBILINOGEN,URINE 0.2 EU/dL (0.2)
[2023-01-03 21:28] LABS: BACTERIA,URINE None seen /HPF (None Seen); RBC,URINE 0-2 /HPF (0-2); SQUAMOUS EPITHELIAL CELL,UR 0-2 /HPF (None Seen); WBC,URINE 0-2 /HPF (0-3)
[2023-01-03] MEDS ORDERED: IV NS 0.9% 1,000 ML IV ONE ×2 (22:00)
--- NOTE | 2023-01-03 22:03 | NUR ---
RT AT PT'S BEDSIDE FOR VBG
[2023-01-03 22:09] LABS: SITE, VBG Other; VBG MetHb 0.5 %; VBG O2Hb 67.7 %; VENT MODE, VBG ROOM AIR (VENOUS)
--- NOTE | 2023-01-03 23:32 | NUR ---
US TECH AT PT'S BEDSIDE
[2023-01-04 01:03] LABS: CREATININE 0.6 mg/dL (0.6-1.3); POTASSIUM 3.4 mmol/L (3.5-5.1)
[2023-01-04 04:02] VITALS: BP 114/61
== END 2023-01-04 04:03 | disposition home or self-care (01) ==
LOC: ER 19:41
DX: R10.13 Epigastric pain (principal); E86.0 Dehydration; E78.5 Hyperlipidemia, unspecified; E11.9 Type 2 diabetes mellitus without complications; Z79.84 Long term (current) use of oral hypoglycemic drugs; Z79.899 Other long term (current) drug therapy
CPT/HCPCS: 99284; 96360; 76705; 82803 ×2; 85025; 80048 ×2; 83690; 80076; 84703; 81001; 36415 ×2; J7030

== ENCOUNTER 2023-06-20 18:16 | Emergency (ER) | payer OTHER ==
[~2023-06-20] VITALS: Ht 160 cm; Wt 64.4 kg
[2023-06-20] MEDS ORDERED: MAG HYDROX/AL HYDROX/SIMETH 30 ML UDC ONE (18:41)
[2023-06-20] MEDS ORDERED: LIDOCAINE VISCOUS 2% UD 15 ML UDC ONE (18:41)
[2023-06-20] MEDS ORDERED: PANTOPRAZOLE 40 MG VIAL ONE (18:41)
[2023-06-20] MEDS ORDERED: LIDOCAINE VISCOUS 2% UD 15 ML UDC MM ONE (19:00)
[2023-06-20] MEDS ORDERED: PANTOPRAZOLE 40 MG VIAL IV ONE (19:00)
[2023-06-20] MEDS ORDERED: MAG HYDROX/AL HYDROX/SIMETH 30 ML UDC PO ONE (19:00)
[2023-06-20] MEDS ORDERED: IV NS 0.9% 1,000 ML BAG IV ONE ×2 (19:00→20:00)
[2023-06-20 19:06] LABS: BASOPHILS % (AUTO) 0.5 % (0.0-2.0); EOSINOPHILS # (AUTO) 0.1 K/uL (0.0-0.7); EOSINOPHILS % (AUTO) 1.2 % (0.0-6.0); HEMATOCRIT 39 % (33-45); HEMOGLOBIN 13.7 g/dL (11.5-14.8); LYMPHOCYTES # (AUTO) 2.2 K/uL (0.8-4.8); LYMPHOCYTES % (AUTO) 20.3 % (20.0-44.0); MEAN CORPUSCULAR HEMOGLOBIN 31 PG (26.0-33.0); MEAN CORPUSCULAR HGB CONC 35 g/dl (31.0-36.0); MEAN CORPUSCULAR VOLUME 88 fL (82-100); MONOCYTES # (AUTO) 0.5 K/uL (0.1-1.30); MONOCYTES % (AUTO) 4.3 % (2.0-12.0); NEUTROPHILS # (AUTO) 7.9 K/uL (1.8-8.9); NEUTROPHILS % (AUTO) 73.7 % (43.0-81.0); PLATELET COUNT (AUTO) 215 K/uL (150-450); RED BLOOD CELL COUNT(AUTO) 4.43 MIL/uL (4.0-5.2); RED CELL DISTRIBUTION WIDTH 12.8 % (11.5-15.0); WHITE BLOOD COUNT (AUTO) 10.7 K/uL (4.3-11.0)
[2023-06-20 19:12] LABS: CALCIUM, SERUM 8.4 mg/dL (8.5-10.1); CREATININE 0.5 mg/dL (0.6-1.3); POTASSIUM 3.5 mmol/L (3.5-5.1)
[2023-06-20 19:18] LABS: ALBUMIN 3.4 g/dL (3.4-5.0); BILIRUBIN,DIRECT 0.1 mg/dL (0.0-0.2); BILIRUBIN,TOTAL 0.6 mg/dL (0.2-1.0); TOTAL PROTEIN, SERUM 7.3 g/dL (6.4-8.2)
[2023-06-20 19:42] LABS: APPEARANCE,URINE SLIGHTLY CLOUDY (CLEAR); BILIRUBIN,URINE 1+ (NEGATIVE); BLOOD, URINE TRACE-INTA Ery/uL (NEGATIVE); COLOR,URINE YELLOW (YELLOW); KETONES,URINE 3+ mg/dL (NEGATIVE); LEUKOCYTE ESTERASE ,URINE NEGATIVE (NEGATIVE); NITRITE, URINE NEGATIVE (NEGATIVE); PH,URINE 5.5 (5.0-8.0); PROTEIN,URINE TRACE mg/dl (NEGATIVE); UGLUCOSE 1+ mg/dL (NEGATIVE)
[2023-06-20] MEDS ORDERED: FAMO-131 PO (20:11)
[2023-06-20] MEDS ORDERED: TRAM50TA2 PO (20:11)
[2023-06-20] MEDS ORDERED: ONDA4TAB11 PO (20:11)
[2023-06-20 20:19] LABS: ADD URINE CULTURE YES; BACTERIA,URINE 2+ /HPF (None Seen); SQUAMOUS EPITHELIAL CELL,UR 21-50 /HPF (None Seen); WBC,URINE 0-2 /HPF (0-3)
[2023-06-20 22:57] VITALS: BP 139/73; TEMP 98.4; O2SAT 100
== END 2023-06-20 22:58 | disposition home or self-care (01) ==
LOC: ER 18:24
DX: K85.90 Acute pancreatitis without necrosis or infection, unspecified (principal); E11.65 Type 2 diabetes mellitus with hyperglycemia; E78.5 Hyperlipidemia, unspecified; Z79.84 Long term (current) use of oral hypoglycemic drugs
CPT/HCPCS: 99283; 96374; 96361 ×2; 85025; 80048; 87086; 83690; 80076; 81001; 36415; J7030 ×2; C9113; A4223

== ENCOUNTER 2024-02-09 19:46 | Emergency (ER) | payer OTHER ==
[~2024-02-09] VITALS: Ht 160 cm; Wt 94.8 kg
[~2024-02-09 19:46] MED LIST changes: +TRAM50TA2 PO
[2024-02-09 22:24] VITALS: TEMP 98
[2024-02-09] MEDS: IV NS 0.9% 1,000 ML BAG IV ONE (22:53)
[2024-02-09 23:27] LABS: BASOPHILS % (AUTO) 0.4 % (0.0-2.0); EOSINOPHILS # (AUTO) 0.2 K/uL (0.0-0.7); EOSINOPHILS % (AUTO) 1.9 % (0.0-6.0); HEMATOCRIT 39 % (33-45); HEMOGLOBIN 13.5 g/dL (11.5-14.8); LYMPHOCYTES # (AUTO) 3.3 K/uL (0.8-4.8); MEAN CORPUSCULAR HEMOGLOBIN 31 PG (26.0-33.0); MEAN CORPUSCULAR HGB CONC 35 g/dl (31.0-36.0); MEAN CORPUSCULAR VOLUME 90 fL (82-100); MONOCYTES # (AUTO) 0.5 K/uL (0.1-1.30); MONOCYTES % (AUTO) 5.9 % (2.0-12.0); NEUTROPHILS # (AUTO) 4.4 K/uL (1.8-8.9); NEUTROPHILS % (AUTO) 52.8 % (43.0-81.0); PLATELET COUNT (AUTO) 233 K/uL (150-450); RED BLOOD CELL COUNT(AUTO) 4.32 MIL/uL (4.0-5.2); RED CELL DISTRIBUTION WIDTH 13.4 % (11.5-15.0); WHITE BLOOD COUNT (AUTO) 8.3 K/uL (4.3-11.0)
[2024-02-09 23:36] LABS: CALCIUM, SERUM 9.1 mg/dL (8.5-10.1); CREATININE 0.7 mg/dL (0.6-1.3); POTASSIUM 3.7 mmol/L (3.5-5.1)
[2024-02-09 23:48] LABS: ACETONE, SERUM NEGATIVE (NEGATIVE)
[2024-02-09 23:50] LABS: ALBUMIN 3.6 g/dL (3.4-5.0); BILIRUBIN,DIRECT 0.2 mg/dL (0.0-0.2); BILIRUBIN,TOTAL 0.6 mg/dL (0.2-1.0); TOTAL PROTEIN, SERUM 7.6 g/dL (6.4-8.2)
[2024-02-10 00:34] LABS: PREGNANCY TEST SERUM QUAN 0 mIU/mL (0-6)
[2024-02-10 01:06] LABS: PREGNANCY TEST URINE QUAL NEGATIVE (NEGATIVE)
[2024-02-10 01:07] LABS: ADD URINE CULTURE NO; APPEARANCE,URINE CLEAR (CLEAR); BACTERIA,URINE None seen /HPF (None Seen); BILIRUBIN,URINE NEGATIVE (NEGATIVE); BLOOD, URINE NEGATIVE Ery/uL (NEGATIVE); COLOR,URINE YELLOW (YELLOW); KETONES,URINE NEGATIVE (NEGATIVE); LEUKOCYTE ESTERASE ,URINE NEGATIVE (NEGATIVE); NITRITE, URINE NEGATIVE (NEGATIVE); PROTEIN,URINE NEGATIVE (NEGATIVE); RBC,URINE 0-2 /HPF (0-2); SQUAMOUS EPITHELIAL CELL,UR Rare /HPF (None Seen); UGLUCOSE 2+ mg/dL (NEGATIVE); UROBILINOGEN,URINE 0.2 EU/dL (0.2); WBC,URINE 0-2 /HPF (0-3)
[2024-02-10 01:37] VITALS: BP 121/70; O2SAT 100
[2024-02-11 20:29] LABS: SITE, VBG Other; VBG BASE EXCESS -2.3 mmol/L (-3-3); VBG COHb 0.6 %; VBG MetHb 0.3 %; VBG OXYGEN SATURATION 40.4 %; VBG PCO2 44.5 mmHg (40-52); VBG PH 7.342 (7.31-7.41); VBG PO2 25.2 mmHg (30-50); VBG TOTAL HEMOGLOBIN 13.4 G/dL (12.0-16.0); VENT MODE, VBG ROOM AIR
== END 2024-02-10 01:38 | disposition home or self-care (01) ==
LOC: ER 20:24
DX: E11.65 Type 2 diabetes mellitus with hyperglycemia (principal); E78.5 Hyperlipidemia, unspecified
CPT/HCPCS: 99283; 96360; 82803; 85025; 80048; 82010; 83690; 80076; 84702; 87086; 84703; 81001; J7030; 36415